=== PATIENT | female | born 1995 | race Caucasian/White ===

== ENCOUNTER 2023-09-02 12:26 | Emergency (ER) | payer SELFPAY ==
[2023-09-02 12:36] VITALS: BP 131/75; PULSE 88; RESP 14; TEMP 36.4; O2SAT 99
--- NOTE | 2023-09-02 12:36 | PC.NURSE ---
Pt declined lab work at this time, requesting for labs/iv to be done in the room when called back for exam.
--- NOTE | 2023-09-02 12:53 | PC.NURSE ---
Pt to the intake desk stating that she is going to go somewhere else. Pt ambulated to the exit with no difficulty
== END 2023-09-02 13:25 | disposition left against medical advice (07) ==
LOC: ANHED 13:06
PROVIDERS: PCP Internal Medicine
DX: R11.2 Nausea with vomiting, unspecified (principal)
CPT/HCPCS: 99199